=== PATIENT | female | born 1965 | race Caucasian/White ===

== ENCOUNTER → 2019-11-15 14:59 | Outpatient (CLI) | payer OTHER, SELFPAY ==
--- NOTE | ~2019-11-15 | MM_ITS ---
EXAMINATION: MM screening cullen BI w jessica HISTORY: Screening mammogram TECHNIQUE: Craniocaudal and mediolateral oblique 3-D tomosynthesis images were obtained and synthetic 2-D images were generated. CAD analysis was submitted and interpreted. COMPARISON: 11/06/2017, 11/01/2016, 09/20/2015 bilateral digital screening mammogram examinations BREAST PARENCHYMAL COMPOSITION: There are scattered areas of fibroglandular density. FINDINGS: There is a stable 1.3 cm circumscribed opacity in the upper outer quadrant of the left teri st posteriorly. There is a stable 8 mm circumscribed opacity in the anterior lower inner quadrant anteriorly. There is no evidence of suspicious mass, calcification, or architectural distortion to suggest malig maya in either breast. There has been no suspicious interval change. IMPRESSION: 1. No mammographic evidence of malignancy. 2. Recommend routine screening mammography in one year. BIRADS Category 2: Benign Reviewed, dictated and finalized at location A.
== END ==
PROVIDERS: Visit Provider Obstetrics & Gynecology Gynecology
DX: Z12.31 Encounter for screening mammogram for malignant neoplasm of breast (principal)
CPT/HCPCS: 77063; 77067

== ENCOUNTER → 2020-11-15 09:49 | Outpatient (CLI) | payer OTHER, SELFPAY ==
--- NOTE | ~2020-11-15 | MM_ITS ---
EXAMINATION: MM screening cullen BI w jessica HISTORY: Screening mammogram TECHNIQUE: Craniocaudal and mediolateral oblique 3-D tomosynthesis images were obtained and synthetic 2-D images were generated. CAD analysis was submitted and interpreted. COMPARISON: 11/15/2019, 11/09/2018, 11/06/2017, 11/01/2069 bilateral digital screening examination 11/02/2014 diagnostic left mammogram and complete left breast ultrasound BREAST PARENCHYMAL COMPOSITION: There are scattered areas of fibroglandular density. FINDINGS: Stable approximately 12 mm posterior upper outer quadrant left breast circumscribed low-den sity mass Stable 7.6 mm low-density circumscribed mass in the anterior lower inner quadrant of the left breast. These are unchanged since 11/02/2014. There is no evidence of suspicious mass, calcification, or architectural distortion to suggest malign katy in either breast. There has been no suspicious interval change. IMPRESSION: 1. No mammographic evidence of malignancy. 2. Recommend routine screening mammography in one year. BI-RADS Category 2: Benign finding(s). Reviewed, dictated and finalized at location A.
== END ==
PROVIDERS: PCP Family Medicine; Visit Provider Nurse Practitioner
DX: Z12.31 Encounter for screening mammogram for malignant neoplasm of breast (principal)
CPT/HCPCS: 77063; 77067

== ENCOUNTER → 2021-11-17 08:08 | Outpatient (CLI) | payer OTHER, SELFPAY ==
--- NOTE | ~2021-11-17 | MM_ITS ---
EXAMINATION: MM screening cullen BI w jessica HISTORY: Screening TECHNIQUE: Craniocaudal and mediolateral oblique 3-D tomosynthesis images were obtained and synthetic 2-D images were generated. CAD analysis was submitted and interpreted. COMPARISON: Comparison to multiple prior studies sequentially, with oldest reviewed study dated 11/01. BREAST PARENCHYMAL COMPOSITION: Breast composed of scattered areas of fibroglandular density FINDINGS: There are stable benign-appearing masses in the left breast. There is no evidence of suspic ious mass, calcification, or architectural distortion to suggest malignancy in either breast. There h as been no suspicious interval change. IMPRESSION: 1. No mammographic evidence of malignancy. 2. Recommend routine screening mammography in one year. BI-RADS Category 2: Benign finding(s). Reviewed, dictated and finalized at location A.
--- NOTE | ~2021-11-17 | DEXA_ITS ---
Bone Density Report Name: ROD DENIS Age: 56 Sex: Female Ethnicity: White Date of : 1965 Indication: monitoring treatment; hysterectomy; postmenopausal Referring Provider: TOD AWAN Study: Bone densitometry was performed. Exam Date: November 17, 2021 Accession number: [id number] Bone Density: Region BMD T-score Z-score Classification AP Spine (L1, L3, L4) 1.184 1.2 2.4 Normal Femoral Neck (Left) 1.082 2.1 3.2 Normal Total Hip (Left) 1.221 2.3 3.0 Normal Femoral Neck (Right) 1.126 2.5 3.6 Normal Total Hip (Right) 1.267 2.7 3.4 Normal Total Hip Mean 1.244 2.5 3.2 Normal World Health Organization criteria for BMD impression classify patients as: Normal (T-score at or above -1.0), Osteopenia (T-score between -1.0 and -2.5), or Osteoporosis (T-score at or below -2.5). 10-year Fracture Risk: FRAX not reported because: All T-scores for Spine Total, Hip Total, Femoral Neck at or above -1.0 Treated for osteoporosis Previous Exams: Region Exam Age BMD T-score BMD Change BMD Change Date g/cm2 vs Baseline vs Previous AP Spine(L1, L3, L4) 11/17/2021 56 1.184 1.2 0.021 -0.026* 12/04/2018 53 1.210 1.4 0.047 0.047 09/20/2015 50 1.164 1.0 Total Hip(Left) 11/17/2021 56 1.221 2.3 -0.013 0.001 12/04/2018 53 1.220 2.3 -0.014 -0.014 09/20/2015 50 1.233 2.4 Total Hip(Right) 11/17/2021 56 1.267 2.7 0.016 -0.028* 12/04/2018 53 1.295 2.9 0.044 0.044 09/20/2015 50 1.251 2.5 *Denotes significance at 95% confidence level, LSC for AP Spine = 0.022 g/cm2, LSC for Total Hip = 0.027 g/cm2 Clinical Information Provided by Patient: Is being treated for osteoporosis Has used the following medications: HRT (i.e. estrogen/hormone therapy), Vitamin D Has the following medical conditions: Hysterectomy Patient maximum height was 64.5 Menopause Age: 36 No regular weight bearing exercise Drinks caffeinated beverages Onset of menses at age 12 Number of children 1 Impression: The patient has normal bone mass. The BMD for the AP Spine(L1, L3, L4) decreased, changing by -0.026 since the last DXA exam. The BMD for the Total Hip(Right) decreased, changing by -0.028 since the last DXA exam. Discussion: SIGNIFICANT BONE LOSS OBSERVED. Adherence to therapy (including calcium and vitamin D intake) should
== END ==
PROVIDERS: PCP Family Medicine; Visit Provider Obstetrics & Gynecology Gynecology
DX: Z12.31 Encounter for screening mammogram for malignant neoplasm of breast (principal); Z78.0 Asymptomatic menopausal state
CPT/HCPCS: 77063; 77067; 77080

== ENCOUNTER → 2022-07-26 09:19 | Outpatient (CLI) | payer OTHER, SELFPAY ==
--- NOTE | ~2022-07-26 | US_ITS ---
EXAMINATION: US abdomen complete DATE: 07/26/2022 10:00 INDICATION: Generalized abdominal pain. TECHNIQUE: Multiple grayscale and Doppler ultrasound images of the abdomen were obtained. COMPARISON: None FINDINGS: The visualized portions of the head, body, and tail of the pancreas are normal. Abdominal a nash is normal in caliber. Inferior vena cava is normal. There is a 1.4 cm cyst in the liver. The gal lbladder is normal in size. No gallstones or gallbladder wall thickening. No sonographic Edwards sign. The common duct is normal and measures 5 mm. The kidneys are normal in size. The spleen is normal in size. IMPRESSION: 1. Normal complete abdomen ultrasound. Reviewed, dictated and finalized at location A.
== END ==
PROVIDERS: PCP Family Medicine; Visit Provider Nurse Practitioner Family
DX: R10.9 Unspecified abdominal pain (principal)
CPT/HCPCS: 76700

== ENCOUNTER 2022-08-14 17:22 | Outpatient (CLI) | payer OTHER, SELFPAY ==
[2022-08-14 18:09] LABS: Basophils Absolute Auto 0.1 K/mm3 (0.0-0.1); Basophils Percent Auto 0.9 % (0.2-1.2); Eosinophils Absolute Auto 0.2 K/mm3 (0-0.3); Eosinophils Percent Auto 2.2 % (0-4.4); Hematocrit 42.6 % (37.0-47.0); Hemoglobin 14.1 g/dL (12.0-15.0); Immature Granulocyte Absolute 0.02 K/mm3 (0.00-0.031); Immature Granulocyte Percent A 0.3 % (0-0.5); Lymphocytes Absolute Auto 2.84 K/mm3 (0.9-3.2); Lymphocytes Percent Auto 41.7 % (18.3-44.2); Mean Corpuscular HGB Conc 33.1 g/dl (32-36); Mean Corpuscular Hemoglobin 30.7 pg (26-34); Mean Corpuscular Volume 92.8 fl (80-100); Mean Platelet Volume 9.5 fl (7.4-10.4); Monocytes Absolute Auto 0.6 K/mm3 (0.1-0.6); Monocytes Percent Auto 9.3 % (2.6-8.5); Neutrophils Absolute Auto 3.1 K/mm3 (1.3-6.7); Neutrophils Percent Auto 45.6 % (45.5-73.1); Platelet Count Result 281 k/mm3 (150-375); Red Blood Count 4.59 M/mm3 (4.2-5.4); Red Cell Distribution Width 12.1 % (11.5-14.5); White Blood Count 6.8 K/mm3 (4.5-10.0)
[2022-08-14 18:20] LABS: Alanine Aminotransferase 18 U/L (6-35); Albumin Level 4.6 g/dL (3.5-5.1); Alkaline Phosphatase 84 U/L (38-126); Amylase 96 U/L (30-110); Anion Gap 7 mmol/L (8-16); Aspartate Amino Transferase 21 U/L (14-36); Bilirubin,Total 0.5 mg/dL (0.2-1.3); Blood Urea Nitrogen 10 mg/dL (7-17); Calcium 9.5 mg/dL (8.4-10.2); Carbon Dioxide 29 mmol/L (22-30); Chloride 103 mmol/L (98-107); Estimated Glomerular Filt Rate > 60; Glucose 93 mg/dL (65-110); Lipase 73 U/L (23-300); Potassium 3.7 mmol/L (3.4-5.0); Sodium 139 mmol/L (137-145)
== END 2022-08-14 17:23 | disposition home or self-care (01) ==
PROVIDERS: PCP Family Medicine; Visit Provider Nurse Practitioner Family
DX: R10.9 Unspecified abdominal pain (principal)
CPT/HCPCS: 36415; 80053; 82150; 83690; 85025

== ENCOUNTER 2022-08-15 08:58 | Outpatient (CLI) | payer OTHER, SELFPAY ==
--- NOTE | ~2022-08-15 | CT_ITS ---
EXAMINATION: CT abdomen pelvis w con INDICATION: Right lower quadrant pain TECHNIQUE: Computed tomographic images of the abdomen and pelvis were obtained after the administrati on of 100 cc of Omnipaque 350 intravenous contrast. The dose-length product (DLP) was 1164.66 mGy-cm. Automated exposure control and iterative reconstruction technique were employed. COMPARISON: None available FINDINGS: Minimal dependent atelectasis is present in the lung bases. The heart size is normal. There is a 12 mm cyst of the left hepatic lobe. The spleen, pancreas, gallbladder, and adrenal glands are normal. The kidneys are unremarkable. No pathologically enlarged abdominal or pelvic lymph nodes are identified. No free intraperitoneal gas or evidence of bowel obstruction. The appendix is normal. The re is mild lumbar spondylosis. IMPRESSION: 1. No CT correlate for the patient's symptoms. Reviewed, dictated and finalized at location L.
== END 2022-08-15 08:59 | disposition home or self-care (01) ==
PROVIDERS: PCP Family Medicine; Visit Provider Nurse Practitioner Family
DX: R10.9 Unspecified abdominal pain (principal)
CPT/HCPCS: 74177; Q9967

== ENCOUNTER 2022-11-04 03:47 | Day surgery (SDC) | payer OTHER, SELFPAY ==
[2022-10-21 14:31] VITALS: BMI 36.5
[2022-11-04 10:12] VITALS: BP 112/74; PULSE 68; RESP 18; TEMP 36.2; O2SAT 68; BMI 37.2
--- NOTE | 2022-11-04 10:31 | WPDANESEPPF ---
Anes - Initial Pre Proc Eval Procedure: Operation Date: 11/04/22 11:30 Proposed Procedures p Esophagogastroduodenoscopy & Colonoscopy - Leandro Ramírez MD Date/Time: 11/04/22 10:31 Surgeon: Leandro Ramírez MD Pre Op Diagnosis: abdom.pain,lower left quad pain,nausea, GERD Patient Data Age: 57 Gender: F Height: 1.63 m Weight: 98.3 kg Last Vital Signs Temp 97.1 F L 11/04/22 10:12 Pulse 68 11/04/22 10:12 Resp 18 11/04/22 10:12 BP 112/74 11/04/22 10:12 Pulse Ox 68 L 11/04/22 10:12 Allergies Allergy/AdvReac Type Severity Reaction Status Date / Time Macrolide Antibiotics Allergy Unknown SEVERE Verified 08/28/22 14:38 HEADACHES codeine AdvReac Intermediate Drowsy Verified 10/29/22 13:34 cortisone AdvReac Intermediate Difficulty Verified 10/29/22 13:34 Breathing erythromycin base AdvReac Intermediate Other Verified 10/29/22 13:34 latex AdvReac Intermediate Blister Verified 10/29/22 13:34 Sulfa (Sulfonamide AdvReac Intermediate Headache Verified 10/29/22 13:34 Antibiotics) hydrocodone AdvReac Unknown OVER Verified 08/28/22 14:38 SEDATION Home Medications Medication Instructions Recorded Confirmed Type conjugated estrogens 0.625 mg 0.625 mg PO DAILY 05/10/19 10/29/22 History tablet (Premarin) lifitegrast 5 % eye drops in a 1 drop ophthalmic (eye) BID 10/06/19 10/29/22 History dropperette (Xiidra) L.acidoph, paracasei,B. lactis 10 1 cell PO DAILY 01/22/22 10/29/22 History billion cell capsule (Digestive Advantage Advanced Probiotic) cetirizine 10 mg capsule (Zyrtec) 10 mg PO DAILY PRN alergies 01/22/22 10/29/22 History cholecalciferol (vitamin D3) 50 50 mcg PO DAILY 01/22/22 10/29/22 History mcg (2,000 unit) capsule cyanocobalamin (vitamin B-12) 500 250 mcg PO DAILY 01/22/22 10/29/22 History mcg tablet (Vitamin B-12) fluticasone propionate 50 1 spray intranasal BID 01/22/22 10/29/22 History mcg/actuation nasal spray,suspension guaifenesin 600 mg tablet, 600 mg PO BID 01/22/22 10/29/22 History extended release 12 hr (Mucinex) multivitamin with minerals-folic 1 tablet PO DAILY 01/22/22 10/29/22 History acid 200 mcg chewable tablet (Women's Multivitamin Gummies) pseudoephedrine HCl 30 mg tablet 30 mg PO Q4-6H PRN alergies 01/22/22 10/29/22 History (Sudafed) albuterol sulfate 90 mcg/actuation 1 inh inhalation Q4H PRN shortness 02/28/22 10/29/22 Rx aerosol inhaler of breath or wheezing #8.5 grams atorvastatin 10 mg tablet 10 mg PO DAILY #30 tabs 06/17/22 10/29/22 Rx levothyroxine 75 mcg tablet 75 mcg PO DAILY #30 tabs 07/09/22 10/29/22 Rx pantoprazole 40 mg tablet,delayed 40 mg PO QAM #90 tabs 10/29/22 10/29/22 Rx release Patient hx anesthesia problems: post op nausea/vomiting Family hx anesthesia problems: none Results Review: All pre-operative results and documents have been reviewed as part of the pre-operative evaluation. [facility] Past Medical History Medical History (Updated 10/29/22 @ 13:35 by JESSICA Aburto) Abdominal pain Acute pharyngitis, unspecified (08/08/16) BMI 36.0-36.9,adult BMI 37.0-37.9, adult Bronchitis Dietary counseling and surveillance (10/20/18) Dysphagia Elevated TSH Encounter for general adult medical examination without abnormal findings Encounter for screening for diabetes mellitus Family history of B12 deficiency GERD (gastroesophageal reflux disease) History of vitamin D deficiency Hx of adenomatous colonic polyps Hypothyroidism (acquired) LLQ abdominal pain Measles, mumps, rubella (MMR) vaccination status unknown Mixed hyperlipidemia Mouth sores Muscle spasm Nausea Other acute nonsuppurative otitis media recurrent, unspecified ear Pain in both hands Post menopausal problems Thyroid disorder screening Tonsillolith Vitamin D deficiency Family History Family History Mother Hypertension Glaucoma De
[2022-11-04] MEDS: LACTATED RINGERS 1,000 ML 150 ML IV CONT (10:51)
--- NOTE | 2022-11-04 10:53 | PM.HPGS ---
History of Present Illness History of Present Illness Consent: Risks, benefits, and alternatives have been discussed and questions answered. Patient agrees to proceed with procedure. Chief complaint: abdom.pain,lower left quad pain,nausea, GERD Narrative: Nini Vargas is a 57 year old female with gerd for many years who was on pepcid recently on protonix, also was having llq pain- ultrasound and CT scan no major findings. Last colonoscopy 2019 with polyps, never had EGD. Abdominal pain lately better. Review of Systems Constitutional: Constitutional: Denies headache(s) and Denies weakness Eyes: Eyes: Denies blurry vision ENT: Reports Normal hearing present, Denies headache(s) and Denies neck pain Cardiovascular: Cardiovascular: Denies chest pain and Denies dyspnea Respiratory: Respiratory: Denies dyspnea Gastrointestinal: Gastrointestinal: Reports no additional gastrointestinal complaints Genitourinary: Genitourinary: Denies dysuria Musculoskeletal: Musculoskeletal: Denies neck pain Integumentary/Breasts: Skin/Breast: Denies dry skin Neurologic: Reports Normal hearing present, Denies headache(s) and Denies weakness Psychiatric: Psychiatric: Denies anxiety Endocrine: Endocrine: Denies change in body appearance Hematologic/Lymphatic: Hematologic/Lymphatic: Denies easy bleeding Allergic/Immunologic: Allergic/Immunologic: Denies urticaria PMF Past Medical History Medical History (Updated 10/29/22 @ 13:35 by JESSICA Aburto) Abdominal pain Acute pharyngitis, unspecified (08/08/16) BMI 36.0-36.9,adult BMI 37.0-37.9, adult Bronchitis Dietary counseling and surveillance (10/20/18) Dysphagia Elevated TSH Encounter for general adult medical examination without abnormal findings Encounter for screening for diabetes mellitus Family history of B12 deficiency GERD (gastroesophageal reflux disease) History of vitamin D deficiency Hx of adenomatous colonic polyps Hypothyroidism (acquired) LLQ abdominal pain Measles, mumps, rubella (MMR) vaccination status unknown Mixed hyperlipidemia Mouth sores Muscle spasm Nausea Other acute nonsuppurative otitis media recurrent, unspecified ear Pain in both hands Post menopausal problems Thyroid disorder screening Tonsillolith Vitamin D deficiency Family History Family History Mother Hypertension Glaucoma Dementia Hyperlipidemia Grandparent Family history of malignant neoplasm Carcinoma of colon Family history of heart disease in male family member before age 55 Sibling Hyperlipidemia Father Blood clot in vein Other Family history of malignant neoplasm of breast Social History Social History Smoking status: Never smoker Second hand tobacco smoke exposure: Yes Alcohol intake: never Substance use: never Substance use type: does not use Lack of Transportation: No Lack of Food: Never True Current Housing: I Have Housing Concerned About Future Housing: No Difficulty Paying Gas/Electric Bills: No Difficulty Paying for Meds: No Currently Unemployed: No Education: High School Diploma/GED Difficulty w/ Childcare or Family Care: No Living arrangements: with family Occupation/Education: occupation 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 lactis 10 1 cell PO DAILY 01/22/22 10/29/22 History billion cell capsule (Digestive Advantage Advanced
--- NOTE | 2022-11-04 11:08 | SUR.OPER ---
EGD ENDED AT 1103, COLONOSCOPY BEGAN AT 1108.
[2022-11-04 11:20] VITALS: BP 117/81; PULSE 82; RESP 26; O2SAT 100
[2022-11-04 11:30] VITALS: BP 120/75; PULSE 82; RESP 24; O2SAT 100
[2022-11-04 11:40] VITALS: BP 122/80; PULSE 78; RESP 21; O2SAT 100
== END 2022-11-04 12:04 | disposition home or self-care (01) ==
PROVIDERS: PCP Family Medicine; Visit Provider Internal Medicine Gastroenterology
PROC: 0DJ08ZZ Inspection of Upper Intestinal Tract, Via Natural or Artificial Opening Endoscopic (ICD-10-PCS; CPT 43235; principal; 2022-11-04 11:30)
DX: R10.32 Left lower quadrant pain (principal); K21.9 Gastro-esophageal reflux disease without esophagitis; K57.30 Diverticulosis of large intestine without perforation or abscess without bleeding; D12.2 Benign neoplasm of ascending colon; D12.3 Benign neoplasm of transverse colon; E55.9 Vitamin D deficiency, unspecified; E03.9 Hypothyroidism, unspecified; E78.2 Mixed hyperlipidemia
CPT/HCPCS: 43239; 45380; 45385; 88305; J2704; J7120

== ENCOUNTER → 2023-04-05 09:39 | Outpatient (CLI) | payer OTHER, SELFPAY ==
--- NOTE | ~2023-04-05 | MM_ITS ---
EXAMINATION: MM screening cullen BI w jessica HISTORY: Screening mammogram TECHNIQUE: Craniocaudal and mediolateral oblique 3-D tomosynthesis images were obtained and synthetic 2-D images were generated. CAD analysis was submitted and interpreted. COMPARISON: Serial mammograms dating back to 11/09/2018 bilateral screening mammogram examination BREAST PARENCHYMAL COMPOSITION: There are scattered areas of fibroglandular density. FINDINGS: Stable approximately 1.3 cm circumscribed opacity in the posterior lower outer left breast and stable approximate 8 mm circumscribed opacity situated anteriorly in the mid inner left breast. There is no evidence of suspicious mass, calcification, or architectural distortion to suggest malig maya in either breast. There has been no suspicious interval change. IMPRESSION: 1. Benign stable findings. No mammographic evidence of malignancy. 2. Recommend routine screening mammography in one year. BI-RADS Category 2: Benign finding(s). Reviewed, dictated and finalized at location A. NURSE
== END ==
PROVIDERS: PCP Obstetrics & Gynecology Gynecology; Visit Provider Obstetrics & Gynecology Gynecology
DX: Z12.31 Encounter for screening mammogram for malignant neoplasm of breast (principal); R92.8 Other abnormal and inconclusive findings on diagnostic imaging of breast
CPT/HCPCS: 77063; 77067

== ENCOUNTER 2023-07-28 16:13 | Outpatient (CLI) | payer BC, SELFPAY ==
--- NOTE | ~2023-07-28 | XR_ITS ---
EXAMINATION: XR chest 2V Exam Date/Time: 07/28/2023 16:17 CDT HISTORY: J10.1 - Influenza due to other identified influenza virus... Comparison: None. RESULT: Lines, tubes, and devices: None. Lungs and pleura: Clear. Cardiomediastinal silhouette: Normal. Other: No acute osseous or upper abdominal finding. IMPRESSION: No acute cardiopulmonary process. Reviewed, dictated and finalized at location K.
== END 2023-07-28 16:14 ==
LOC: MICIMG 16:16
PROVIDERS: PCP Family Medicine; Visit Provider Physician Assistant Medical
DX: J10.1 Influenza due to other identified influenza virus with other respiratory manifestations (principal); J10.01 Influenza due to other identified influenza virus with the same other identified influenza virus pneumonia; R06.2 Wheezing
CPT/HCPCS: 71046

== ENCOUNTER 2023-12-21 11:00 | Emergency (ER) | payer BC, SELFPAY ==
--- NOTE | 2023-12-21 11:05 | ED.URI ---
HPI - URI/Sore Throat General Chief Complaint: Upper Respiratory Infection Stated Complaint: Sinus Time Seen by Provider: 12/21/23 11:05 Source: patient, RN notes reviewed and old records reviewed Mode of arrival: ambulatory Limitations: no limitations History of Present Illness HPI Narrative: Patient presents with one-week history of sinus pain and pressure. She reports that approximately 1 week ago she began noticing sore throat and nasal drainage. She was not concerned at 1st, only became concerned yesterday when pain got significantly worse, this morning she reports purulent discharge from the nose. He she does report intermittent body aches. She denies any fever or chills. Denies any injury or trauma. Voices no other concerns at this time Related Data Home Medications Medication Instructions Recorded Confirmed conjugated estrogens 0.625 mg 0.625 mg PO DAILY 05/10/19 12/21/23 tablet (Premarin) lifitegrast 5 % eye drops in a 1 drop ophthalmic (eye) BID 10/06/19 12/21/23 dropperette (Xiidra) cetirizine 10 mg capsule (Zyrtec) 10 mg PO DAILY PRN alergies 01/22/22 12/21/23 cholecalciferol (vitamin D3) 50 50 mcg PO DAILY 01/22/22 12/21/23 mcg (2,000 unit) capsule cyanocobalamin (vitamin B-12) 500 250 mcg PO DAILY 01/22/22 12/21/23 mcg tablet (Vitamin B-12) fluticasone propionate 50 1 spray intranasal BID 01/22/22 12/21/23 mcg/actuation nasal spray,suspension guaifenesin 600 mg tablet, 600 mg PO BID 01/22/22 12/21/23 extended release 12 hr (Mucinex) multivitamin with minerals-folic 1 tablet PO DAILY 01/22/22 12/21/23 acid 200 mcg chewable tablet (Women's Multivitamin Gummies) pseudoephedrine HCl 30 mg tablet 30 mg PO Q4-6H PRN alergies 01/22/22 12/21/23 (Sudafed) atorvastatin 10 mg tablet 10 mg PO DAILY 12/21/23 12/21/23 Allergies Allergy/AdvReac Type Severity Reaction Status Date / Time Macrolide Antibiotics Allergy Unknown SEVERE Verified 12/21/23 11:09 HEADACHES codeine AdvReac Intermediate Drowsy Verified 12/21/23 11:09 cortisone AdvReac Intermediate Difficulty Verified 12/21/23 11:09 Breathing erythromycin base AdvReac Intermediate Other Verified 12/21/23 11:53 latex AdvReac Intermediate Wheezing Verified 12/21/23 11:52 Sulfa (Sulfonamide AdvReac Intermediate Headache Verified 12/21/23 11:09 Antibiotics) hydrocodone AdvReac Unknown OVER Verified 12/21/23 11:09 SEDATION Review of Systems Review of Systems: All systems reviewed & are unremarkable except as noted in HPI and below Constitutional: Constitutional: Reports as per HPI, Reports no additional constitutional complaints, Reports body ache(s), Denies fatigue and Reports lethargy ENT: Reports system reviewed and no additional complaints, except as documented, Reports nasal discharge, Reports sinus pain, Reports sinus pressure and Reports sore throat Cardiovascular: Cardiovascular: Reports no additional cardiovascular complaints Respiratory: Respiratory: Reports no additional respiratory complaints Gastrointestinal: Gastrointestinal: Reports no additional gastrointestinal complaints PMFSH Past Medical History Medical History Abdominal pain Acute pharyngitis, unspecified (08/08/16) BMI 35.0-35.9,adult BMI 36.0-36.9,adult BMI 37.0-37.9, adult Bronchitis Dietary counseling and surveillance (10/20/18) Dysphagia Elevated TSH Encounter for general adult medical examination without abnormal findings Encounter for screening for diabetes mellitus Family history of B12 deficiency GERD (gastroesophageal reflux disease) History of vitamin D deficiency Hx of adenomatous colonic polyps Hypothyroidism (acquired) LLQ abdominal pain Measles, mumps, rubella (MMR) vaccination status unknown Mixed hyperlipidemia Mouth sores Muscle spasm Nausea Other acute nonsuppurative otitis media recurrent, unspecified ear Pain in both hands Post menopausal problems Thyroid disorder s
[2023-12-21 11:09] VITALS: BP 141/87; PULSE 97; RESP 20; TEMP 36.1; O2SAT 98
[2023-12-21 11:10] VITALS: BP 141/87; PULSE 97; RESP 20; TEMP 36.1; O2SAT 98
== END 2023-12-21 11:45 | disposition home or self-care (01) ==
PROVIDERS: Emergency Provider Nurse Practitioner Family; PCP Family Medicine
DX: J01.00 Acute maxillary sinusitis, unspecified (principal); K21.9 Gastro-esophageal reflux disease without esophagitis; E03.9 Hypothyroidism, unspecified; E78.2 Mixed hyperlipidemia; E55.9 Vitamin D deficiency, unspecified
CPT/HCPCS: 99213; G0463

== ENCOUNTER 2024-02-20 10:08 | Emergency (ER) | payer BC, SELFPAY ==
--- NOTE | ~2024-02-20 | CT_ITS ---
EXAMINATION: CT abdomen pelvis w con DATE: 02/20/2024 13:03 INDICATION: Right lower quadrant abdominal pain TECHNIQUE: Computed tomography (CT) of the abdomen and pelvis was performed with 100 mL Omnipaque-350 intravenous contrast. Automated exposure control and iterative reconstruction technique were employe d. The dose-length product was 1250.72 mGy-cm. COMPARISON: 08/15/2022 FINDINGS: Lung bases are clear. Heart size is normal. Small amount of atherosclerotic coronary artery calcifica tion. No pericardial or pleural effusion. Very small sliding-type hiatal hernia. 1.5 cm cyst in the l eft hepatic lobe. Gallbladder, spleen, pancreas, bilateral adrenal glands and kidneys are normal. [place] els are unremarkable with no wall thickening or obstruction. Normal retrocecal appendix. Small fat-co ntaining right inguinal hernia. The uterus is not identified and has likely been surgically resected. No significant interval change in a nonspecific 1.2 cm peripherally enhancing versus rim calcified l esion at the vaginal cuff which given the interval stability is likely benign. Bladder is normal. No free intraperitoneal gas or fluid. No pathologically enlarged abdominal or pelvic lymphadenopathy. IMPRESSION: 1. Normal gallbladder and retrocecal appendix. No acute intra-abdominal/pelvic process. 2. Small fat-containing right inguinal hernia. Reviewed, dictated and finalized at location A.
[2024-02-20 10:16] VITALS: BP 171/108; PULSE 86; RESP 18; TEMP 36.5; O2SAT 100
[2024-02-20 11:30] VITALS: PULSE 72; RESP 22; O2SAT 99
[2024-02-20 11:49] LABS: Basophils Absolute Auto 0.1 K/mm3 (0.0-0.1); Basophils Percent Auto 0.8 % (0.2-1.2); Eosinophils Absolute Auto 0.1 K/mm3 (0-0.3); Eosinophils Percent Auto 1.6 % (0-4.4); Hematocrit 41.4 % (37.0-47.0); Hemoglobin 14.3 g/dL (12.0-15.0); Immature Granulocyte Absolute 0.02 K/mm3 (0.00-0.031); Immature Granulocyte Percent A 0.3 % (0-0.5); Lymphocytes Absolute Auto 2.07 K/mm3 (0.9-3.2); Lymphocytes Percent Auto 33.4 % (18.3-44.2); Mean Corpuscular HGB Conc 34.5 g/dl (32-36); Mean Corpuscular Hemoglobin 31.3 pg (26-34); Mean Corpuscular Volume 90.6 fl (80-100); Mean Platelet Volume 9.3 fl (7.4-10.4); Monocytes Absolute Auto 0.5 K/mm3 (0.1-0.6); Monocytes Percent Auto 8.4 % (2.6-8.5); Neutrophils Absolute Auto 3.4 K/mm3 (1.3-6.7); Neutrophils Percent Auto 55.5 % (45.5-73.1); Platelet Count Result 265 k/mm3 (150-375); Red Blood Count 4.57 M/mm3 (4.2-5.4); Red Cell Distribution Width 11.9 % (11.5-14.5); White Blood Count 6.2 K/mm3 (4.5-10.0)
[2024-02-20 11:51] LABS: Add Urine Microscopic? NO; Appearance Urine Clear (Clear); Bilirubin Urine Negative (Negative); Blood Urine Negative (Negative); Color Urine Yellow (Yellow); Glucose Urine UA Negative (Negative); Ketones Urine Negative (Negative); Leukocyte Esterase Ur Negative LEU/UL (Negative); Nitrate Urine Negative (Negative); Protein Urine Negative (Negative); Specific Grav Ur 1.006 (1.001-1.035); Urobilinogen Urine 0.2 mg/dL (<2.0); pH Urine 6.5 (5.0-9.0)
--- NOTE | 2024-02-20 11:58 | PC.NURSE ---
pt states they had a full hysterectomy
[2024-02-20 12:00] VITALS: BP 124/73; PULSE 70; RESP 20; O2SAT 99
[2024-02-20 12:00] LABS: Alanine Aminotransferase 14 U/L (6-35); Albumin Level 4.6 g/dL (3.5-5.1); Alkaline Phosphatase 80 U/L (38-126); Anion Gap 9 mmol/L (4-12); Aspartate Amino Transferase 21 U/L (14-36); Bilirubin,Total 0.6 mg/dL (0.2-1.3); Blood Urea Nitrogen 12 mg/dL (7-17); Calcium 9.6 mg/dL (8.4-10.2); Carbon Dioxide 25 mmol/L (22-30); Chloride 104 mmol/L (98-107); Estimated CRCL calculation 97 ml/min; Estimated Glomerular Filt Rate > 60; Glucose 94 mg/dL (65-110); Lipase 63 U/L (23-300); Potassium 3.9 mmol/L (3.4-5.0); Sodium 138 mmol/L (137-145)
--- NOTE | 2024-02-20 12:12 | ED_ITS ---
HPI - Abdominal Pain General Chief Complaint: Abdominal Pain Stated Complaint: RLQ pain Time Seen by Provider: 02/20/24 12:06 Source: patient and family Mode of arrival: ambulatory Limitations: no limitations History of Present Illness HPI narrative: Intermittent right lower quadrant sharp pain started 1-1 and have week ago, radiating to the umbilical area. She denies any fever, chills, nausea, vomiting, diarrhea, patient of urgent redo discharge or urinary symptoms. Patient reported the pain woke her up from sleep this morning and has been steady since. Related Data Home Medications Medication Instructions Recorded Confirmed conjugated estrogens 0.625 mg 0.625 mg PO DAILY 05/10/19 12/21/23 tablet (Premarin) lifitegrast 5 % eye drops in a 1 drop ophthalmic (eye) BID 10/06/19 12/21/23 dropperette (Xiidra) cetirizine 10 mg capsule (Zyrtec) 10 mg PO DAILY PRN alergies 01/22/22 12/21/23 cholecalciferol (vitamin D3) 50 50 mcg PO DAILY 01/22/22 12/21/23 mcg (2,000 unit) capsule cyanocobalamin (vitamin B-12) 500 250 mcg PO DAILY 01/22/22 12/21/23 mcg tablet (Vitamin B-12) fluticasone propionate 50 1 spray intranasal BID 01/22/22 12/21/23 mcg/actuation nasal spray,suspension guaifenesin 600 mg tablet, 600 mg PO BID 01/22/22 12/21/23 extended release 12 hr (Mucinex) multivitamin with minerals-folic 1 tablet PO DAILY 01/22/22 12/21/23 acid 200 mcg chewable tablet (Women's Multivitamin Gummies) pseudoephedrine HCl 30 mg tablet 30 mg PO Q4-6H PRN alergies 01/22/22 12/21/23 (Sudafed) atorvastatin 10 mg tablet 10 mg PO DAILY 12/21/23 12/21/23 Allergies Allergy/AdvReac Type Severity Reaction Status Date / Time Macrolide Antibiotics Allergy Unknown SEVERE Verified 12/21/23 11:09 HEADACHES codeine AdvReac Intermediate Drowsy Verified 12/21/23 11:09 cortisone AdvReac Intermediate Difficulty Verified 12/21/23 11:09 Breathing erythromycin base AdvReac Intermediate Other Verified 12/21/23 11:53 latex AdvReac Intermediate Wheezing Verified 12/21/23 11:52 Sulfa (Sulfonamide AdvReac Intermediate Headache Verified 12/21/23 11:09 Antibiotics) hydrocodone AdvReac Unknown OVER Verified 12/21/23 11:09 SEDATION Review of Systems Review of Systems: All systems reviewed & are unremarkable except as noted in HPI and below PMFSH Past Medical History Medical History Abdominal pain Acute pharyngitis, unspecified (08/08/16) BMI 35.0-35.9,adult BMI 36.0-36.9,adult BMI 37.0-37.9, adult Bronchitis Dietary counseling and surveillance (10/20/18) Dysphagia Elevated TSH Encounter for general adult medical examination without abnormal findings Encounter for screening for diabetes mellitus Family history of B12 deficiency GERD (gastroesophageal reflux disease) History of vitamin D deficiency Hx of adenomatous colonic polyps Hypothyroidism (acquired) LLQ abdominal pain Measles, mumps, rubella (MMR) vaccination status unknown Mixed hyperlipidemia Mouth sores Muscle spasm Nausea Other acute nonsuppurative otitis media recurrent, unspecified ear Pain in both hands Post menopausal problems Thyroid disorder screening Tonsillolith Vitamin D deficiency Surgical History Surgical History History of hysterectomy History of knee surgery History of lumpectomy Family History Family History Mother Hypertension Glaucoma Dementia Hyperlipidemia Grandparent Family history of malignant neoplasm Carcinoma of colon Family history of heart disease in male family member before age 55 Sibling Hyperlipidemia Father Blood clot in vein Other Family history of malignant neoplasm of breast Social History Social History Smoking status: Never smoker Second hand tobacco smoke exposure: Yes Alcohol intake: never Substance use: never Substance use type: does not use Do You Feel Safe in your Home?: Yes Lack of Transportation: No Lack of Food: Never True Current Housing: I Have Housing Concerned About Future Housing: No Difficulty Paying Gas/Electric Bills: No Difficulty Paying for Meds: No Currently Unemployed: No Education: High School Diploma/GED Difficulty w/ Childcare or Family Care: No Living arrangements: with family Occupation/Education: occupation 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 Gender identity (if verbalized by the patient): Female Spiritual care concerns: No Exam Narrative: General appearance: Well-developed, well-nourished Skin: Normal color Head: Normocephalic, nontraumatic Eyes: Clear conjunctiva ENT: Oropharynx normal, ears normal, nose normal Neck: Supple, nontender Chest and respiratory: Airway patent, no respiratory distress, no accessory muscle use Heart: Regular rate/rhythm Abdomen: Soft, mild tenderness right lower quadrant, no guarding or rebound, no bruises or rash no organomegaly, quiet bowel sounds Vascular: Normal peripheral pulses, normal capillary refill. Musculoskeletal: Normal range of motion, nontender back Neurologic: Alert and oriented ?3, [employer] is normal as tested, no gross motor deficit Course Vital Signs Vital signs: Vital Signs Temperature 36.5 C 02/20/24 10:16 Pulse Rate 86 02/20/24 10:16 Respiratory Rate 18 02/20/24 10:16 Blood Pressure 171/108 H 02/20/24 10:16 Pulse Oximetry 100 02/20/24 10:16 Oxygen Delivery Room Air 02/20/24 10:16 Temperature 36.5 C 02/20/24 10:16 Pulse Rate 72 02/20/24 11:30 Respiratory Rate 22 H 02/20/24 11:30 Blood Pressure 171/108 H 02/20/24 10:16 Pulse Oximetry 99 02/20/24 11:30 Oxygen Delivery Room Air 02/20/24 11:30 MDM - Abdominal Pain MDM Narrative Medical decision making narrative: Patient presents with right lower quadrant pain Vital signs showed blood pressure of 171/108 Physical examination showed moderate tenderness right lower quadrant Differential diagnosis include appendicitis, urinary tract infection, colitis, constipation, right ovarian pathology Blood workup today showed WBC of 6.2 creatinine 0.6 Urinalysis showed no acute abnormalities CT scan of the abdomen and pelvis with IV contrast showed no acute intra- abdominal abnormalities Patient abdominal pain could be secondary to abdominal wall muscle strain/sprain, anxiety inducing abdominal pain. Patient was advised to take Tylenol, ibuprofen as needed and follow up with her family physician in 1 week. The pt was discharged to home.the pt,s condition upon discharge was fair,education was provided to the pt in reference to the final impression,discharge study results,treatment,prognosis and need for follow up . Differential Diagnosis Differential diagnosis: Likely other (As above) Medical Records Attestation: I reviewed the patient's medical records. Lab Data Attestation: I reviewed the patient's lab results. 02/20/24 11:42 02/20/24 11:42 Labs: Lab Results 02/20/24 Range/Units 11:42 WBC 6.2 (4.5-10.0) K/mm3 RBC 4.57 (4.2-5.4) M/mm3 Hgb 14.3 (12.0-15.0) g/dL Hct 41.4 (37.0-47.0) % MCV 90.6 (80-100) fl MCH 31.3 (26-34) pg MCHC 34.5 (32-36) g/dl RDW 11.9 (11.5-14.5) % Plt Count 265 (150-375) k/mm3 MPV 9.3 (7.4-10.4) fl Immature Gran % (Auto) 0.3 (0-0.5) % Neut % (Auto) 55.5 (45.5-73.1) % Lymph % (Auto) 33.4 (18.3-44.2) % [place] % (Auto) 8.4 (2.6-8.5) % Eos % (Auto) 1.6 (0-4.4) % Baso % (Auto) 0.8 (0.2-1.2) % Lymph # (Auto) 2.07 (0.9-3.2) K/mm3 [place] # (Auto) 0.5 (0.1-0.6) K/mm3 Eos # (Auto) 0.1 (0-0.3) K/mm3 Baso # (Auto) 0.1 (0.0-0.1) K/mm3 Abs Immat Gran (auto) 0.02 (0.00-0.031) K/mm3 Absolute Neuts (auto) 3.4 (1.3-6.7) K/mm3 Absolute Nucleated RBC 0.000 (0.0-0.012) K/mm3 Nucleated RBC % 0.0 (0.0-0.2) % Sodium 138 (137-145) mmol/L Potassium 3.9 (3.4-5.0) mmol/L Chloride 104 (98-107) mmol/L Carbon Dioxide 25 (22-30) mmol/L Anion Gap 9 (4-12) mmol/L BUN 12 (7-17) mg/dL Creatinine 0.60 L (0.7-1.0) mg/dL Estim Creat Clear Calc 97 ml/min Estimated GFR > 60 (59 - ) Glucose 94 (65-110) mg/dL Calcium 9.6 (8.4-10.2) mg/dL Total Bilirubin 0.6 (0.2-1.3) mg/dL AST 21 (14-36) U/L ALT 14 (6-35) U/L Alkaline Phosphatase 80 (38-126) U/L Total Protein 8.0 (6.3-8.2) g/dL Albumin 4.6 (3.5-5.1) g/dL Lipase 63 (23-300) U/L Urine Color Yellow (Yellow) Urine Appearance Clear (Clear) Urine pH 6.5 (5.0-9.0) Ur Specific [place] 1.006 (1.001-1.035) Urine Protein Negative (Negative) mg/dL Urine Glucose (UA) Negative (Negative) mg/dL Urine Ketones Negative (Negative) mg/dL Ur Blood (Man) Negative (Negative) Urine Nitrate Negative (Negative) Urine Bilirubin Negative (Negative) Urine Urobilinogen 0.2 (<2.0) mg/dL Leukocyte Esterase Rfl Negative (Negative) VAISHALI/UL Imaging Data Radiologist's impression: ITS Impressions Abdomen/Pelvis CT 02/20/24 13:25 IMPRESSION: 1. Normal gallbladder and retrocecal appendix. No acute intra-abdominal/pelvic process. 2. Small fat-containing right inguinal hernia. Critical Care Time Critical Care Time Critical Care Time: No Discharge Plan Discharge Clinical Impression: Abdominal pain Patient Disposition: Home, Self-Care Condition: Improved Instructions: Abdominal Pain (ED) Additional Instructions: Return if symptoms are worsening , call your family physician for appointment, take Tylenol, ibuprofen as as needed for aches and pain, continue home medications. Prescriptions: No Action atorvastatin 10 mg tablet 10 mg PO DAILY amoxicillin-pot clavulanate 875-125 mg tablet 1 tablet PO Q12H Qty: 20 0RF Premarin 0.625 mg tablet 0.625 mg PO DAILY Rx Instructions: cyclically Xiidra 5 % dropperette 1 drop EACH EYE BID Rx Instructions: administer approximately 12 hours apart guaifenesin [Mucinex] 600 mg tablet extended release 12hr 600 mg PO BID pseudoephedrine HCl [Sudafed] 30 mg tablet 30 mg PO Q4-6H PRN (Reason: alergies) Rx Instructions: DNExceed 4 doses/24h Zyrtec 10 mg capsule 10 mg PO DAILY PRN (Reason: alergies) fluticasone propionate 50 mcg/actuation spray,suspension 1 spray intranasal BID Rx Instructions: administer into each nostril cholecalciferol (vitamin D3) 50 mcg (2,000 unit) capsule 50 mcg PO DAILY cyanocobalamin (vitamin B-12) [Vitamin B-12] 500 mcg tablet 250 mcg PO DAILY Women's Multivitamin Gummies 200 mcg tablet,chewable 1 tablet PO DAILY levothyroxine 75 mcg tablet 75 mcg PO DAILY Qty: 90 2RF pantoprazole 40 mg tablet,delayed release (DR/EC) 40 mg PO QAM Qty: 90 2RF albuterol sulfate 90 mcg/actuation HFA aerosol inhaler 1 inh inhalation Q4H PRN (Reason: shortness of breath or wheezing) Qty: 8.5 0RF Follow-up/Referrals: Shayne Calvert MD [Primary Care Provider] -
[2024-02-20 13:57] VITALS: BP 129/74; PULSE 74; RESP 14; TEMP 36.9; O2SAT 100
== END 2024-02-20 13:55 | disposition home or self-care (01) ==
PROVIDERS: Student in an Organized Health Care Education/Training Program; Emergency Provider Emergency Medicine; PCP Family Medicine
DX: R10.31 Right lower quadrant pain (principal); E03.9 Hypothyroidism, unspecified; E78.2 Mixed hyperlipidemia; E55.9 Vitamin D deficiency, unspecified; K21.9 Gastro-esophageal reflux disease without esophagitis; Z86.0101 Personal history of adenomatous and serrated colon polyps; Z90.710 Acquired absence of both cervix and uterus; Z79.899 Other long term (current) drug therapy; K40.90 Unilateral inguinal hernia, without obstruction or gangrene, not specified as recurrent
CPT/HCPCS: 36415; 74177; 80053; 81003; 83690; 85025; 99284; Q9967

== ENCOUNTER 2024-04-15 11:42 | Outpatient (CLI) | payer BC, SELFPAY ==
--- NOTE | ~2024-04-15 | MM_ITS ---
EXAMINATION: MM screening cullen BI w jessica HISTORY: Screening TECHNIQUE: Craniocaudal and mediolateral oblique 3-D tomosynthesis images were obtained and synthetic 2-D images were generated. CAD analysis was submitted and interpreted. COMPARISON: 04/05/2023 and dating back to 11/15/2019 BREAST PARENCHYMAL COMPOSITION: There are scattered areas of fibroglandular density. FINDINGS: Stable asymmetries within the left breast, unchanged from prior. Stable parenchymal pattern without suspicious microcalcifications, architectural distortion, discrete masses or significant asymmetry. IMPRESSION: 1. No mammographic evidence of malignancy. 2. Recommend routine screening mammography in one year. BI-RADS Category 2: Benign finding(s). Reviewed, dictated and finalized at location A. GER UROLOGY
== END 2024-04-15 11:43 | disposition home or self-care (01) ==
LOC: MICIMG 11:43
PROVIDERS: PCP Family Medicine; Visit Provider Obstetrics & Gynecology Gynecology
DX: Z12.31 Encounter for screening mammogram for malignant neoplasm of breast (principal)
CPT/HCPCS: 77063; 77067

== ENCOUNTER 2024-07-28 11:08 | Outpatient (CLI) | payer BC, SELFPAY ==
--- NOTE | ~2024-07-28 | XR_ITS ---
EXAMINATION: XR chest 2V 07/28/2024 11:23 INDICATION: Bronchitis PROCEDURE: 2 view chest COMPARISON: 07/28/2023 FINDINGS: The lungs are clear. The cardiomediastinal silhouette is within normal limits. There are no pleural effusions. There is no pneumothorax suspected. IMPRESSION: 1: NO ACUTE CARDIOPULMONARY DISEASE. Reviewed, dictated and finalized at location A.
== END 2024-07-28 11:09 | disposition home or self-care (01) ==
LOC: MICIMG 11:09
PROVIDERS: PCP Family Medicine; Visit Provider Nurse Practitioner Adult Health
DX: J40 Bronchitis, not specified as acute or chronic (principal)
CPT/HCPCS: 71046

== ENCOUNTER 2025-02-03 15:47 | Outpatient (CLI) | payer BC, SELFPAY ==
--- NOTE | ~2025-02-03 | US_ITS ---
US thyroid INDICATION: Hypothyroidism. TECHNIQUE: Real-time sonographic images of the thyroid gland were obtained. COMPARISON: No prior studies for comparison. FINDINGS: The right thyroid lobe measures 4.8 x 2.6 x 1.4 cm. The left thyroid lobe measures 5.2 x 1.9 x 1.3 cm. There is heterogeneous echotexture and echogenicity throughout the thyroid gland. No discrete nodules identified. Normal vascular flow is present. IMPRESSION: 1. Unremarkable thyroid without discrete nodule or abnormal vascularity. Reviewed, dictated and finalized at location O.
== END 2025-02-03 15:48 | disposition home or self-care (01) ==
PROVIDERS: PCP Family Medicine
DX: E06.3 Autoimmune thyroiditis (principal)
CPT/HCPCS: 76536

== ENCOUNTER 2025-02-18 09:00 | Outpatient (CLI) | payer BC, SELFPAY ==
--- NOTE | ~2025-02-18 | XR_ITS ---
EXAMINATION: XR shoulder LT min 2V, 02/18/2025 9:05 CDT HISTORY: M25.512 - Pain in left shoulder COMPARISON: No comparisons available. Findings: No acute fracture or malalignment. No significant degenerative changes. Soft tissues unremarkable. Impression: No acute fracture or malalignment. Reviewed, dictated and finalized at location P. Impression: No acute fracture or malalignment.
== END 2025-02-18 09:01 | disposition home or self-care (01) ==
LOC: MICIMG 09:02
PROVIDERS: PCP Family Medicine; Visit Provider Family Medicine
DX: S49.92XA Unspecified injury of left shoulder and upper arm, initial encounter (principal); X58.XXXA Exposure to other specified factors, initial encounter; R29.898 Other symptoms and signs involving the musculoskeletal system
CPT/HCPCS: 73030

== ENCOUNTER 2025-04-18 11:15 | Outpatient (CLI) | payer BC, SELFPAY ==
--- NOTE | ~2025-04-18 | MM_ITS ---
EXAMINATION: MM screening cullen BI w jessica HISTORY: Screening. TECHNIQUE: Craniocaudal and mediolateral oblique 3-D tomosynthesis images were obtained and synthetic 2-D images were generated. CAD analysis was submitted and interpreted. COMPARISON: 2023, 2022, and 2021 BREAST PARENCHYMAL COMPOSITION: Not Dense: There are scattered areas of fibroglandular tissue. FINDINGS: Benign-appearing masses on the left are long-term stable. No suspicious masses are seen. There are no suspicious calcifications. No unexplained architectural distortion is seen. There are no skin or nipple abnormalities identified. There is no adenopathy seen on the images submitted. IMPRESSION: No mammographic evidence to suggest malignancy is seen. The patient may return to screening mammography as per ACR guidelines. BI-RADS 2 - Benign. Reviewed, dictated and finalized at location A. ENE ASSISTANT
== END 2025-04-18 11:16 | disposition home or self-care (01) ==
LOC: MICIMG 11:16
PROVIDERS: PCP Obstetrics & Gynecology Gynecology; Visit Provider Obstetrics & Gynecology Gynecology
DX: Z12.31 Encounter for screening mammogram for malignant neoplasm of breast (principal)
CPT/HCPCS: 77063; 77067

== ENCOUNTER 2025-04-19 13:10 | Outpatient (CLI) | payer BC, SELFPAY ==
--- NOTE | ~2025-04-19 | XR_ITS ---
EXAMINATION: XR hand LT min 3V, XR hand RT min 3V DATE: 04/19/2025 13:22 INDICATION: Joint pain at the bilateral hands TECHNIQUE: 1. Posteroanterior, oblique and lateral views of the left hand were obtained. 2. Posteroanterior, oblique and lateral views of the right hand were obtained. COMPARISON: None. FINDINGS: Normal alignment at the right hand. 2-3 mm ulnar minus variance at the left wrist. Limited the left hand is otherwise normal. No fractures. Moderate osteoarthritis at the bilateral first interphalangeal, left third and fourth proximal interphalangeal and multiple bilateral distal interphalangeal joints. Mild osteoarthritis at the remaining interphalangeal joints and bilateral triscaphe and first carpal metacarpal joints. No erosions at either hand to suggest inflammatory arthritis. Soft tissues are unremarkable. IMPRESSION: 1. 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 Reviewed, dictated and finalized at location A. SPECIALIST IMPRESSION: 1. Relatively symmetric pattern of distal interphalangeal joint predominance mi ld to moderate polyarticular osteoarthritis of both hands.
== END 2025-04-19 13:11 | disposition home or self-care (01) ==
LOC: MICIMG 13:11
PROVIDERS: PCP Family Medicine; Visit Provider Nurse Practitioner Family
DX: M25.541 Pain in joints of right hand (principal); M25.542 Pain in joints of left hand
CPT/HCPCS: 73130